=== PATIENT | male | born 1980 | race Hispanic/Latino ===

== ENCOUNTER 2017-05-24 16:06 | Emergency (ER) | payer SELFPAY ==
[~2017-05-24 16:06] MED LIST: ALBU0.63 IH; ASPI-1005 PO; ATOR20TA PO; AZIT250T9 PO; BUDE180A2 IH; PRED20TA3 PO
[2017-05-24 17:15] LABS: APPEARANCE,URINE Clear (CLEAR); BASOPHILS % (AUTO) 0.8 % (0.0-5.0); BILIRUBIN,URINE Negative (NEGATIVE); COLOR,URINE Yellow (YELLOW); GLUCOSE, URINE (UA) Negative (NEGATIVE); HEMATOCRIT 45.2 % (42-54); KETONES,URINE Negative (NEGATIVE); LEUKOCYTE ESTERASE ,URINE Negative (NEGATIVE); LYMPHOCYTES % (AUTO) 30.3 % (21.0-51.0); MEAN CORPUSCULAR HEMOGLOBIN 28.9 pg (27.0-33.0); MEAN CORPUSCULAR HGB CONC 33.6 g/dL (32.0-36.0); MONOCYTES % (AUTO) 10.2 % (3.0-13.0); NEUTROPHILS % (AUTO) 51.7 % (40.0-77.0); NITRATE,URINE Negative (NEGATIVE); OCCULT BLOOD,URINE Negative (NEGATIVE); PH,URINE 6.5 (5.0-8.0); PLATELET COUNT (AUTO) 293 K/uL (130-400); PROTEIN,URINE Negative (NEGATIVE); RED BLOOD CELL COUNT(AUTO) 5.26 MIL/uL (4.50-6.20); RED CELL DISTRIBUTION WIDTH 14.2 % (11.0-15.5); UROBILINOGEN,URINE 0.2 mg/dL (0.2-1.0)
[2017-05-24 17:29] LABS: CREATININE 1.4 mg/dL (0.5-1.5); POTASSIUM 4.3 mmol/L (3.5-5.1); RAPID GROUP A STREP NEGATIVE (NEGATIVE)
[2017-05-24 17:34] LABS: ALBUMIN 4.2 g/dL (3.5-5.0); BILIRUBIN,DIRECT 0.1 mg/dL (0.0-0.3); BILIRUBIN,TOTAL 0.7 mg/dL (0.2-1.0); TOTAL PROTEIN, SERUM 7.9 g/dL (6.0-8.3)
== END 2017-05-24 17:49 | disposition home or self-care (01) ==
LOC: EDH 16:06
DX: J00 Acute nasopharyngitis [common cold] (principal); J45.909 Unspecified asthma, uncomplicated; E11.9 Type 2 diabetes mellitus without complications; E78.5 Hyperlipidemia, unspecified; I10 Essential (primary) hypertension; Z88.6 Allergy status to analgesic agent; Z91.013 Allergy to seafood
CPT/HCPCS: 36415; 80048; 80076; 81003; 85025; 87804; 87880

== ENCOUNTER 2017-07-26 15:30 | Emergency (ER) | payer SELFPAY ==
[2017-07-26] MEDS ORDERED: FAMOTIDINE 20MG TAB 20 MG TAB ONE (15:45)
[2017-07-26] MEDS ORDERED: HYOSCYAMINE SULFATE 0.125 MG TAB.SUBL SL ONE (15:45)
[2017-07-26] MEDS ORDERED: ONDANSETRON 4 MG TABLET ONE (15:45)
[2017-07-26 15:59] LABS: BASOPHILS % (AUTO) 0.4 % (0.0-5.0); EOSINOPHILS % (AUTO) 6.4 % (0.0-8.0); HEMATOCRIT 48.3 % (42-54); LYMPHOCYTES % (AUTO) 22.3 % (21.0-51.0); MEAN CORPUSCULAR HEMOGLOBIN 29.1 pg (27.0-33.0); MEAN CORPUSCULAR HGB CONC 33.7 g/dL (32.0-36.0); MEAN CORPUSCULAR VOLUME 86.4 fL (79-99); MONOCYTES % (AUTO) 8.6 % (3.0-13.0); NEUTROPHILS % (AUTO) 62.3 % (40.0-77.0); PLATELET COUNT (AUTO) 339 K/uL (130-400); RED BLOOD CELL COUNT(AUTO) 5.59 MIL/uL (4.50-6.20); RED CELL DISTRIBUTION WIDTH 13.7 % (11.0-15.5)
[2017-07-26 16:19] LABS: CREATININE 1.7 mg/dL (0.5-1.5); POTASSIUM 4.4 mmol/L (3.5-5.1)
[2017-07-26 16:23] LABS: ALBUMIN 4.3 g/dL (3.5-5.0); BILIRUBIN,DIRECT 0.2 mg/dL (0.0-0.3); BILIRUBIN,TOTAL 1.2 mg/dL (0.2-1.0); TOTAL PROTEIN, SERUM 8.4 g/dL (6.0-8.3)
[2017-07-26] MEDS ORDERED: SODIUM CHLORIDE 0.9% 1000ML 1,000 ML IV ONE (17:36)
[2017-07-26 18:03] LABS: APPEARANCE,URINE CLEAR (CLEAR); BILIRUBIN,URINE NEGATIVE (NEGATIVE); COLOR,URINE YELLOW (YELLOW); GLUCOSE, URINE (UA) NEGATIVE (NEGATIVE); KETONES,URINE NEGATIVE (NEGATIVE); LEUKOCYTE ESTERASE ,URINE NEGATIVE (NEGATIVE); NITRATE,URINE NEGATIVE (NEGATIVE); OCCULT BLOOD,URINE NEGATIVE (NEGATIVE); PROTEIN,URINE NEGATIVE (NEGATIVE); UROBILINOGEN,URINE 0.2 mg/dL (0.2-1.0)
== END 2017-07-26 19:38 | disposition home or self-care (01) ==
LOC: EDH 15:30
DX: R10.13 Epigastric pain (principal); R94.5 Abnormal results of liver function studies; R74.8 Abnormal levels of other serum enzymes; K59.00 Constipation, unspecified; J45.909 Unspecified asthma, uncomplicated; E11.9 Type 2 diabetes mellitus without complications; E78.5 Hyperlipidemia, unspecified; I10 Essential (primary) hypertension; B19.20 Unspecified viral hepatitis C without hepatic coma; Z88.6 Allergy status to analgesic agent; Z91.013 Allergy to seafood
CPT/HCPCS: 36415; 74021; 80048; 80076; 81003; 83690; 84484; 85025; 86677; 93005; 96360; 96361; 99285; J7030; Q0162

== ENCOUNTER 2017-08-13 23:42 | Inpatient (IN) | payer SELFPAY ==
[~2017-08-13] VITALS: Ht 165.1 cm; Wt 71.2 kg
[2017-08-13] MEDS ORDERED: SODIUM CHLORIDE 0.9% 1000ML 1,000 ML IV ONE (23:55)
[2017-08-13] MEDS ORDERED: ONDANSETRON ODT 4 MG TAB ONE (23:55)
[2017-08-14 00:28] LABS: BASOPHILS % (AUTO) 0.1 % (0.0-5.0); EOSINOPHILS % (AUTO) 2.1 % (0.0-8.0); HEMATOCRIT 49.5 % (42-54); LYMPHOCYTES % (AUTO) 6.3 % (21.0-51.0); MEAN CORPUSCULAR HEMOGLOBIN 29.1 pg (27.0-33.0); MEAN CORPUSCULAR HGB CONC 34.2 g/dL (32.0-36.0); MEAN CORPUSCULAR VOLUME 85.2 fL (79-99); NEUTROPHILS % (AUTO) 84.5 % (40.0-77.0); PLATELET COUNT (AUTO) 326 K/uL (130-400); RED BLOOD CELL COUNT(AUTO) 5.81 MIL/uL (4.50-6.20); RED CELL DISTRIBUTION WIDTH 13.5 % (11.0-15.5); WHITE BLOOD COUNT (AUTO) 18.9 K/uL (4.8-10.8)
[2017-08-14 00:35] LABS: CREATININE 1.5 mg/dL (0.5-1.5); POTASSIUM 4.5 mmol/L (3.5-5.1)
[2017-08-14 00:40] LABS: ALBUMIN 4.6 g/dL (3.5-5.0); BILIRUBIN,TOTAL 0.8 mg/dL (0.2-1.0); TOTAL PROTEIN, SERUM 8.6 g/dL (6.0-8.3)
[2017-08-14] MEDS ORDERED: ACETAMINOPHEN-CODEINE ELIXIR 5 ML UDCUP ONE (01:23)
[2017-08-14] MEDS ORDERED: MEROPENEM 1 GM VIAL ONE (01:44)
[2017-08-14] MEDS ORDERED: LIDOCAINE HCL 2% JELLY 5 ML ONE (01:45)
[2017-08-14] MEDS ORDERED: KETOROLAC TROMETHAMINE 30MG/ML ONE (02:12)
[2017-08-14] MEDS ORDERED: SODIUM CHLORIDE 0.9% 1000ML 1,000 ML IV SCH (02:40)
[2017-08-14] MEDS ORDERED: ONDANSETRON HCL 4 MG/2 ML VIAL IV PRN (02:45)
[2017-08-14] MEDS ORDERED: KETOROLAC TROMETHAMINE 30MG/ML IV PRN (02:45)
[2017-08-14] MEDS ORDERED: MEROPENEM 1GM IVPB PREMIXED 1 GM IV SCH (02:45)
[2017-08-14] MEDS ORDERED: LORAZEPAM 2 MG/ML 1 ML VIAL IVP PRN (02:45)
[2017-08-14] MEDS ORDERED: LORAZEPAM 2 MG/ML 1 ML VIAL ONE (03:39)
[2017-08-14 04:45] VITALS: BP 125/79
[2017-08-14 04:45] LABS: BASOPHILS % (AUTO) 0.3 % (0.0-5.0); EOSINOPHILS % (AUTO) 1.6 % (0.0-8.0); HEMATOCRIT 44.6 % (42-54); LYMPHOCYTES % (AUTO) 6.7 % (21.0-51.0); MEAN CORPUSCULAR HEMOGLOBIN 29.3 pg (27.0-33.0); MEAN CORPUSCULAR VOLUME 86.2 fL (79-99); NEUTROPHILS % (AUTO) 86.4 % (40.0-77.0); PLATELET COUNT (AUTO) 284 K/uL (130-400); RED BLOOD CELL COUNT(AUTO) 5.18 MIL/uL (4.50-6.20); RED CELL DISTRIBUTION WIDTH 13.6 % (11.0-15.5); WHITE BLOOD COUNT (AUTO) 15.1 K/uL (4.8-10.8)
[2017-08-14 04:57] LABS: CREATININE 1.5 mg/dL (0.5-1.5); POTASSIUM 3.8 mmol/L (3.5-5.1)
[2017-08-14] MEDS ORDERED: ALBUTEROL SULFATE 0.083% 2.5 MG/3 ML INH IH SCH ×2 (06:00→10:25)
[2017-08-14 07:56] VITALS: BP 126/80
[2017-08-14] MEDS ORDERED: FAMOTIDINE/PF 20 MG/2 ML VIAL IV SCH (09:00)
[2017-08-14] MEDS ORDERED: MEROPENEM 1 GM VIAL IVP SCH (10:00)
[2017-08-14 11:11] VITALS: BP 122/59
[2017-08-14] MEDS ORDERED: ONDANSETRON HCL MDV 20ML 2 MG/ML VIAL IVP PRN (15:00)
[2017-08-15] MEDS ORDERED: PANTOPRAZOLE 40 MG/VIAL IVP SCH (09:00)
== END 2017-08-14 14:20 | disposition left against medical advice (07) | DRG 390 ==
LOC: EDH 23:42 → OBSVTOIN 23:43 → 3CH 23:43 → 3BH 08-14 09:51
PROVIDERS: ADMIT Internal Medicine Nephrology; ATTEND Internal Medicine Nephrology
DX: K56.609 Unspecified intestinal obstruction, unspecified as to partial versus complete obstruction (principal); B19.20 Unspecified viral hepatitis C without hepatic coma; D72.829 Elevated white blood cell count, unspecified; E78.5 Hyperlipidemia, unspecified; E86.0 Dehydration; F41.9 Anxiety disorder, unspecified; J45.909 Unspecified asthma, uncomplicated; Z91.19 Patient's noncompliance with other medical treatment and regimen; Z88.8 Allergy status to other drugs, medicaments and biological substances; Z91.013 Allergy to seafood; Z83.3 Family history of diabetes mellitus; Z82.49 Family history of ischemic heart disease and other diseases of the circulatory system
CPT/HCPCS: 36415; 71045; 74018; 74176; 80048; 80053; 85025; 94640; 94664; J1885; J2060; J2185; J7030

== ENCOUNTER 2018-02-22 14:36 | Emergency (ER) | payer SELFPAY ==
[2018-02-22 15:11] LABS: APPEARANCE,URINE Clear (CLEAR); BILIRUBIN,URINE Negative (NEGATIVE); COLOR,URINE Yellow (YELLOW); GLUCOSE, URINE (UA) Negative (NEGATIVE); KETONES,URINE Negative (NEGATIVE); LEUKOCYTE ESTERASE ,URINE Negative (NEGATIVE); NITRATE,URINE Negative (NEGATIVE); OCCULT BLOOD,URINE Negative (NEGATIVE); PH,URINE 6.5 (5.0-8.0); PROTEIN,URINE Negative (NEGATIVE); UROBILINOGEN,URINE 0.2 mg/dL (0.2-1.0)
[2018-02-22] MEDS ORDERED: PHENAZOPYRIDINE HCL 200 MG TABLET ONE (15:47)
== END 2018-02-22 16:11 | disposition home or self-care (01) ==
LOC: EDH 14:36
DX: R30.0 Dysuria (principal); R10.30 Lower abdominal pain, unspecified; J45.909 Unspecified asthma, uncomplicated; E11.9 Type 2 diabetes mellitus without complications; E78.5 Hyperlipidemia, unspecified; I10 Essential (primary) hypertension; Z88.6 Allergy status to analgesic agent; Z91.013 Allergy to seafood
CPT/HCPCS: 81003

== ENCOUNTER 2018-03-08 09:40 | Emergency (ER) | payer SELFPAY ==
[2018-03-08] MEDS ORDERED: IPRATROPIUM/ALBUTEROL SULFATE 3 ML SOLUTION IH ONE ×3 (10:15→11:16)
[2018-03-08] MEDS ORDERED: METHYLPREDNISOLONE SOD SUCC 125MG/2ML VIAL ONE (10:17)
[2018-03-08 10:43] LABS: BASOPHILS % (AUTO) 0.4 % (0.0-5.0); EOSINOPHILS % (AUTO) 9.3 % (0.0-8.0); HEMATOCRIT 45.4 % (42-54); LYMPHOCYTES % (AUTO) 24.3 % (21.0-51.0); MEAN CORPUSCULAR HEMOGLOBIN 29.6 pg (27.0-33.0); MEAN CORPUSCULAR HGB CONC 33.4 g/dL (32.0-36.0); MEAN CORPUSCULAR VOLUME 88.8 fL (79-99); MONOCYTES % (AUTO) 8.7 % (3.0-13.0); NEUTROPHILS % (AUTO) 57.3 % (40.0-77.0); PLATELET COUNT (AUTO) 300 K/uL (130-400); RED BLOOD CELL COUNT(AUTO) 5.11 MIL/uL (4.50-6.20); RED CELL DISTRIBUTION WIDTH 13.7 % (11.0-15.5); WHITE BLOOD COUNT (AUTO) 12.8 K/uL (4.8-10.8)
[2018-03-08 10:49] LABS: CREATININE 1.3 mg/dL (0.5-1.5); MAGNESIUM 2.2 mg/dL (1.80-2.40); POTASSIUM 4.9 mmol/L (3.5-5.1)
[2018-03-08 11:39] LABS: B-TYPE NATRIURETIC PEPTIDE 6 pg/mL (0-100)
== END 2018-03-08 12:24 | disposition home or self-care (01) ==
LOC: EDH 09:40
DX: J45.901 Unspecified asthma with (acute) exacerbation (principal); J06.9 Acute upper respiratory infection, unspecified; E11.9 Type 2 diabetes mellitus without complications; E78.5 Hyperlipidemia, unspecified; I10 Essential (primary) hypertension; B19.20 Unspecified viral hepatitis C without hepatic coma; Z88.6 Allergy status to analgesic agent; Z91.013 Allergy to seafood; Z87.891 Personal history of nicotine dependence
CPT/HCPCS: 36415; 71045; 80048; 83735; 83880; 84484; 85025; 87804 ×2; 93005; 94640 ×3; 96374; 99285; J2930

== ENCOUNTER 2021-09-18 11:11 | Emergency (ER) | payer OTHER ==
[~2021-09-18] VITALS: Ht 152.4 cm; Wt 64.0 kg
[2021-09-18 11:52] LABS: BASOPHILS % (AUTO) 0.6 % (0.0-5.0); EOSINOPHILS % (AUTO) 5.5 % (0.0-8.0); HEMATOCRIT 46.8 % (42-54); LYMPHOCYTES % (AUTO) 26.4 % (21.0-51.0); MEAN CORPUSCULAR HEMOGLOBIN 29.4 pg (27.0-33.0); MEAN CORPUSCULAR HGB CONC 32.7 g/dL (32.0-36.0); MEAN CORPUSCULAR VOLUME 89.8 fL (79-99); NEUTROPHILS % (AUTO) 60.2 % (40.0-77.0); PLATELET COUNT (AUTO) 287 K/uL (130-400); RED BLOOD CELL COUNT(AUTO) 5.21 MIL/uL (4.50-6.20); RED CELL DISTRIBUTION WIDTH 12.9 % (11.0-15.5); WHITE BLOOD COUNT (AUTO) 9.4 K/uL (4.8-10.8)
[2021-09-18 11:53] LABS: APPEARANCE,URINE Clear (CLEAR); BILIRUBIN,URINE Negative (NEGATIVE); COLOR,URINE Yellow (YELLOW); GLUCOSE, URINE (UA) Negative (NEGATIVE); KETONES,URINE Negative (NEGATIVE); LEUKOCYTE ESTERASE ,URINE Negative (NEGATIVE); NITRATE,URINE Negative (NEGATIVE); OCCULT BLOOD,URINE Negative (NEGATIVE); PROTEIN,URINE Negative (NEGATIVE); UROBILINOGEN,URINE 0.2 mg/dL (0.2-1.0)
[2021-09-18 12:09] LABS: CREATININE 1.3 mg/dL (0.5-1.5); POTASSIUM 4.1 mmol/L (3.5-5.1)
[2021-09-18 12:14] LABS: ALBUMIN 4.2 g/dL (3.5-5.0); BILIRUBIN,TOTAL 1.3 mg/dL (0.2-1.0); TOTAL PROTEIN, SERUM 8.2 g/dL (6.0-8.3)
[2021-09-18] MEDS ORDERED: MECLIZINE HCL 25 MG TABLET PO ONE (12:30)
[2021-09-18] MEDS ORDERED: 0.9%NACL 1000ML 1,000 ML IV ONE (12:30)
[2021-09-18 14:17] VITALS: BP 121/64
[2021-09-18] MEDS ORDERED: ONDA4TAB10 PO (14:31)
[2021-09-18] MEDS ORDERED: L.AC1CAP6 PO (14:31)
== END 2021-09-18 14:41 | disposition home or self-care (01) ==
LOC: EDH 11:11
DX: E86.0 Dehydration (principal); R42 Dizziness and giddiness; R19.7 Diarrhea, unspecified; J45.909 Unspecified asthma, uncomplicated; F41.9 Anxiety disorder, unspecified; Z88.5 Allergy status to narcotic agent; Z79.51 Long term (current) use of inhaled steroids; Z79.52 Long term (current) use of systemic steroids; Z79.82 Long term (current) use of aspirin; Z79.899 Other long term (current) drug therapy; Z86.19 Personal history of other infectious and parasitic diseases; Z87.19 Personal history of other diseases of the digestive system
CPT/HCPCS: 36415; 80053; 81003; 85025; 93005; 96360; 99284; J7030

== ENCOUNTER 2022-05-13 06:37 | Emergency (ER) | payer OTHER ==
[~2022-05-13] VITALS: Ht 165.1 cm; Wt 69.4 kg
[~2022-05-13 06:37] MED LIST changes: +L.AC1CAP6 PO; +ONDA4TAB10 PO
[2022-05-13] MEDS ORDERED: IPRATROPIUM/ALBUTEROL SULFATE 3 ML SOLUTION IH STA (07:25)
[2022-05-13] MEDS ORDERED: SOLU-MEDROL 125MG VIAL IM STA (07:25)
[2022-05-13 09:32] VITALS: BP 127/72
[2022-05-13] MEDS ORDERED: AMOX500C2 PO (10:19)
[2022-05-13] MEDS ORDERED: ALBU18HF7 IH (10:21)
== END 2022-05-13 10:23 | disposition home or self-care (01) ==
LOC: EDH 06:37
DX: J20.8 Acute bronchitis due to other specified organisms (principal); J32.9 Chronic sinusitis, unspecified; Z20.822 Contact with and (suspected) exposure to COVID-19; E78.00 Pure hypercholesterolemia, unspecified; E03.9 Hypothyroidism, unspecified; Z88.5 Allergy status to narcotic agent; Z91.013 Allergy to seafood; Z79.899 Other long term (current) drug therapy; Z79.82 Long term (current) use of aspirin
CPT/HCPCS: 99284; 71045; 87635; 87804 ×2; 96372; 94640; C9803; J2930

== ENCOUNTER 2022-08-22 10:27 | Emergency (ER) | payer OTHER ==
[~2022-08-22] VITALS: Ht 165.1 cm; Wt 61.2 kg
[~2022-08-22 10:27] MED LIST changes: +ALBU18HF7 IH; +AMOX500C2 PO
[2022-08-22] MEDS ORDERED: 0.9%NACL 1000ML 1,000 ML IV ONE (11:30)
[2022-08-22] MEDS ORDERED: KETOROLAC 15MG/ML VIAL (15MG/ML) IV ONE (11:30)
[2022-08-22] MEDS ORDERED: ONDANSETRON 4MG INJ IVP ONE (11:30)
[2022-08-22] MEDS ORDERED: DEXAMETHASONE SOD PHOSPHATE 4 MG/ML 1ML VIAL IVP ONE (12:30)
[2022-08-22] MEDS ORDERED: IPRATROPIUM/ALBUTEROL SULFATE 3 ML SOLUTION IH ONE (12:30)
[2022-08-22] MEDS ORDERED: CEFTRIAXONE 1G VIAL IVP ONE (12:30)
[2022-08-22 12:50] LABS: BASOPHILS % (AUTO) 0.3 % (0.0-5.0); HEMATOCRIT 46.2 % (42-54); LYMPHOCYTES % (AUTO) 18.9 % (21.0-51.0); MEAN CORPUSCULAR HEMOGLOBIN 28.7 pg (27.0-33.0); MEAN CORPUSCULAR HGB CONC 32.7 g/dL (32.0-36.0); MEAN CORPUSCULAR VOLUME 87.8 fL (79-99); MONOCYTES % (AUTO) 13.6 % (3.0-13.0); NEUTROPHILS % (AUTO) 66.8 % (40.0-77.0); PLATELET COUNT (AUTO) 260 K/uL (130-400); RED BLOOD CELL COUNT(AUTO) 5.26 MIL/uL (4.50-6.20); RED CELL DISTRIBUTION WIDTH 13.2 % (11.0-15.5); WHITE BLOOD COUNT (AUTO) 7.5 K/uL (4.8-10.8)
[2022-08-22 12:59] LABS: CREATININE 1.5 mg/dL (0.5-1.5); POTASSIUM 4.1 mmol/L (3.5-5.1)
[2022-08-22 13:04] LABS: ALBUMIN 3.9 g/dL (3.5-5.0); TOTAL PROTEIN, SERUM 8.4 g/dL (6.0-8.3)
[2022-08-22] MEDS ORDERED: DOXY-252 PO (14:12)
[2022-08-22] MEDS ORDERED: ALBU2SYR3 PO (14:17)
[2022-08-22] MEDS ORDERED: PRED20TA3 PO (14:17)
[2022-08-22 14:22] VITALS: BP 105/62
== END 2022-08-22 14:34 | disposition home or self-care (01) ==
LOC: EDH 10:27
DX: J18.9 Pneumonia, unspecified organism (principal); E03.9 Hypothyroidism, unspecified; E78.00 Pure hypercholesterolemia, unspecified; J45.909 Unspecified asthma, uncomplicated; Z20.822 Contact with and (suspected) exposure to COVID-19; Z79.899 Other long term (current) drug therapy; Z79.82 Long term (current) use of aspirin; Z98.890 Other specified postprocedural states; Z88.5 Allergy status to narcotic agent; Z91.013 Allergy to seafood
CPT/HCPCS: 99284; 96374; 96375; 71045; 87635; 96361; 80053; 85025; 87880; 87804 ×2; 36415; 94640; J1100; C9803; J7030; J0696; J2405; J1885

== ENCOUNTER 2023-05-30 15:26 | Emergency (ER) | payer BC, OTHER ==
[~2023-05-30] VITALS: Ht 165.1 cm; Wt 63.5 kg
[~2023-05-30 15:26] MED LIST changes: +ALBU2SYR3 PO; +DOXY-252 PO
[2023-05-30 15:50] LABS: BASOPHILS # (AUTO) 0.05 K/uL (0.00-0.20); BASOPHILS % (AUTO) 0.5 % (0.0-5.0); EOSINOPHILS # (AUTO) 0.81 K/uL (0.00-0.70); EOSINOPHILS % (AUTO) 7.8 % (0.0-8.0); HEMATOCRIT 45.8 % (42-54); IMMATURE GRANULOCYTE ABSOLUTE 0.02 K/uL (0-1); LYMPHOCYTES # (AUTO) 3.6 K/uL (1.0-4.8); LYMPHOCYTES % (AUTO) 34.8 % (21.0-51.0); MEAN CORPUSCULAR HEMOGLOBIN 29.8 pg (27.0-33.0); MEAN CORPUSCULAR HGB CONC 33.2 g/dL (32.0-36.0); MEAN CORPUSCULAR VOLUME 89.8 fL (79-99); MONOCYTES # (AUTO) 0.8 K/uL (0.1-1.0); MONOCYTES % (AUTO) 7.6 % (3.0-13.0); NEUTROPHILS # (AUTO) 5.1 K/uL (1.8-7.7); NEUTROPHILS % (AUTO) 49.1 % (40.0-77.0); PLATELET COUNT (AUTO) 263 K/uL (130-400); RED CELL DISTRIBUTION WIDTH 13.2 % (11.0-15.5); WHITE BLOOD COUNT (AUTO) 10.3 K/uL (4.8-10.8)
[2023-05-30 16:05] LABS: CREATININE 1.3 mg/dL (0.5-1.5); POTASSIUM 4.3 mmol/L (3.5-5.1)
[2023-05-30 16:14] LABS: ALBUMIN 4.1 g/dL (3.5-5.0); BILIRUBIN,TOTAL 1.2 mg/dL (0.2-1.0); TOTAL PROTEIN, SERUM 7.8 g/dL (6.0-8.3)
[2023-05-30] MEDS ORDERED: BENZ-39 PO (19:06)
[2023-05-30] MEDS ORDERED: IBUP-2070 PO (19:06)
[2023-05-30] MEDS ORDERED: METH4TAB3 PO (19:06)
[2023-05-30] MEDS ORDERED: AZEL23SP NS (19:06)
[2023-05-30] MEDS ORDERED: PANT40TA PO (19:06)
[2023-05-30] MEDS ORDERED: ADV250 IH (19:06)
[2023-05-30] MEDS ORDERED: ALBU6.7H14 IH (19:35)
[2023-05-30 20:03] VITALS: BP 146/77; PULSE 82; RESP 17; O2SAT 98
== END 2023-05-30 20:04 | disposition home or self-care (01) ==
LOC: EDH 15:26
DX: J45.909 Unspecified asthma, uncomplicated (principal); D72.10 Eosinophilia, unspecified; E78.00 Pure hypercholesterolemia, unspecified; E03.9 Hypothyroidism, unspecified; Z79.899 Other long term (current) drug therapy; Z79.82 Long term (current) use of aspirin; Z98.890 Other specified postprocedural states; Z87.19 Personal history of other diseases of the digestive system; Z95.5 Presence of coronary angioplasty implant and graft; Z88.5 Allergy status to narcotic agent; Z88.8 Allergy status to other drugs, medicaments and biological substances
CPT/HCPCS: 36415; 71045; 80053; 84484; 85025; 93005

== ENCOUNTER 2024-06-09 18:19 | Emergency (ER) | payer SELFPAY ==
[~2024-06-09] VITALS: Ht 165.1 cm; Wt 61.2 kg
[~2024-06-09 18:19] MED LIST changes: +ADV250 IH; +ALBU2SYR27 PO; -ALBU2SYR3 PO; +ALBU6.7H14 IH; +AZEL23SP NS; +BENZ-39 PO; +IBUP-2070 PO; +METH4TAB3 PO; +ONDA-243 PO; -ONDA4TAB10 PO; +PANT40TA PO
[2024-06-09 18:36] VITALS: TEMP 98.4
--- NOTE | 2024-06-09 18:36 | EKG ---
[facility] Test Date: 2024-06-09 Test Time: 18:34:16 Pat Name: PARAG SANCHES Department: ED Room: Gender: M Obstetrics Technician: [facility] : 1980 Requested By: TAMERA WEEMS Order Number: [id number] Reading MD: Stefan Hwang Measurements Intervals [place] Rate: 79 P: 85 AL: 84 QRS: -38 QRSD: 97 T: -76 QT: 371 QTc: 426 Interpretive Statements Sinus rhythm Left axis deviation Abnrm R prog, consider ASMI or lead placement Nonspecific repol abnormality, inferior leads Short AL interval Compared to ECG 05/30/2023 15:30:27 Left-axis deviation now present Myocardial infarct finding now present Early repolarization now present Short AL Left ventricular hypertrophy no longer present Q waves no longer present Electronically Signed On 06-10-2024 10:21:49 [employer]IPE FOREM[employer] by Stefan Hwang Please click the below link to view image of tracing.
[2024-06-09 18:55] LABS: MEAN CORPUSCULAR HEMOGLOBIN 29.6 pg (27.0-33.0); MEAN CORPUSCULAR HGB CONC 33.3 g/dL (32.0-36.0); MEAN CORPUSCULAR VOLUME 88.9 fL (79-99); RED BLOOD CELL COUNT(AUTO) 5.51 MIL/uL (4.50-6.20); RED CELL DISTRIBUTION WIDTH 12.6 % (11.0-15.5); WHITE BLOOD COUNT (AUTO) 11.8 K/uL (4.8-10.8)
[2024-06-09] MEDS: Solu-medROL 125MG VIAL IVP ONE (18:59)
[2024-06-09 19:03] LABS: CREATININE 1.4 mg/dL (0.5-1.3); POTASSIUM 3.7 mmol/L (3.5-5.1)
[2024-06-09 19:08] LABS: BILIRUBIN,TOTAL 0.8 mg/dL (0.2-1.0); TOTAL PROTEIN, SERUM 7.8 g/dL (6.0-8.3)
[2024-06-09 19:11] VITALS: PULSE 77; RESP 20
[2024-06-09] MEDS: IpraTROPium/alBUTERol SULFATE 3 ML SOLUTION IH ONE ×2 (19:11→19:28)
[2024-06-09 19:28] VITALS: PULSE 85; RESP 20
[2024-06-09 19:40] LABS: ABG BASE EXCESS -2.8 mmol/L (-2.0-3.0); ABG HCO3 18.1 mmol/L (21.0-28.0); ABG OXYGEN SATURATION 98.7 % (94.0-98.0); ABG PCO2 23 mmHg (35-48); ABG PH 7.509 (7.350-7.450); PO2, ARTERIAL BG 120.6 mmHg (83.0-108.0); VENT MODE, BG ROOMAIR (ROOM AIR)
[2024-06-09] MEDS: 0.9%NACL 1000ML 1,000 ML IV ONE (19:54)
[2024-06-09 20:45] VITALS: BP 130/85; PULSE 79; RESP 17; O2SAT 98
[2024-06-09] MEDS ORDERED: AZIT250T9 PO (20:59)
[2024-06-09] MEDS ORDERED: METH4TAB3 PO (20:59)
[2024-06-09] MEDS ORDERED: ALBUHFA IH (20:59)
--- NOTE | 2024-06-09 21:00 | ERN ---
General Chief Complaint: Adult-Asthma Stated Complaint: SOB, WHEEZING Time Seen by MD: 18:25 Time Seen by Midlevel: 18:25 Source: patient History of Present Illness Initial Comments Patient is a 43-year-old male with a past medical history of asthma presenting to the emergency department with shortness of breath and wheezing. Patient states that approximately 1 hour prior to arrival his symptoms started. Patient did three nebulizer treatments at home with little to no relief. Denies any other symptoms at this time. Allergies: Coded Allergies: codeine (Unverified Allergy, Intermediate, HIVES, 11/03/16) shellfish derived (Unverified Allergy, Mild, 06/07/14) No Allergy Information Available (Verified Allergy, Unknown, 06/07/14) Home Meds Active Scripts Albuterol Sulfate (Ventolin Hfa/Proventil Hfa/Proair Hfa) 90 Mcg Puff, 2 PUFF IH Q4H PRN for SHORTNESS OF BREATH/WHEEZING for 30 Days, #1 INH 0 Refills Prov:RONALD BURNETT 06/09/24 Methylprednisolone (Medrol) 4 Mg Tab.ds.pk, 1 TAB PO AD for 6 Days, #21 TAB 0 Refills 6 on day 1 then reduce by one tablet daily until gone Prov:RONALD BURNETT 06/09/24 Azithromycin (Azithromycin) 250 Mg Tablet, 1 TAB PO AD for 5 Days, #6 TAB 0 Refills 2 the first day followed by 1 for days 2-5 Prov:RONALD BURNETT 06/09/24 Albuterol Sulfate (Proventil Hfa) 90 Mcg Hfa.aer.ad, 6.7 GM IH Q4HPRN PRN for WHEEZING, #1 INHALER 1 Refill as needed for asthma or wheezing exacerbation Prov:BART BURCIAGA 05/30/23 Ibuprofen (Ibuprofen) 600 Mg Tablet, 600 MG PO TID PRN for PAIN for 3 Days, #12 TAB Prov:BART BURCIAGA 05/30/23 Pantoprazole Sodium (Protonix) 40 Mg Tablet.dr, 40 MG PO DAILY for 14 Days, #14 TAB Prov:BART BURCIAGA 05/30/23 Methylprednisolone (Medrol) 4 Mg Tab.ds.pk, 4 MG PO DAILY, #1 PACK as directed per dose pack instructions Prov:BART BURCIAGA 05/30/23 Benzonatate (Tessalon Perles) 100 Mg Cap, 100 MG PO TID for cough, #15 CAP 0 Refills Prov:BART BURCIAGA. 05/30/23 Azelastine/Fluticasone (Dymista Nasal [place]) 137 Mcg-50 Mcg/[place].pump, 23 GM NS BID for 30 Days, #1 BOTTLE Prov:BART BURCIAGA Heladio 05/30/23 Fluticasone/Salmeterol (ADVAIR 250-50 DISKUS) 14 Inh/Disk Inh, 1 INH IH BID for 30 Days, #1 INHALER Prov:BART BURCIAGA Preet. 05/30/23 Albuterol Sulfate (Albuterol Sulfate) 2 Mg/5 Ml Syrup, 2 MG PO TID for 5 Days, #75 ML Prov:LARA MARIE REPAIR TECH 08/22/22 Prednisone (Prednisone) 20 Mg Tablet, 2 TAB PO AD for 5 Days, #10 0 Refills TAKE 1 TAB BY MOUTH THREE TIMES PER DAY X3 DAYS, THEN TAKE 1 TAB BY MOUTH TWICE A DAY X2 DAYS, THEN TAKE 1 TAB BY MOUTH ONCE A DAY X1 DAY. Prov:LARA MARIE NP 08/22/22 Doxycycline Hyclate (Doxycycline Hyclate) 100 Mg Tablet.dr, 100 MG PO BID for 7 Days, #14 TAB Prov:LARA MARIE REPAIR TECH 08/22/22 Albuterol Sulfate (Ventolin Hfa) 18 Gm Hfa.aer.ad, 18 GM IH BID for 7 Days, #30 INHALER Prov:ODALYS DUVALL MD 05/13/22 Amoxicillin (Amoxicillin) 500 Mg Capsule, 500 MG PO TID for 7 Days, #21 CAP Prov:ODALYS DUVALL MD 05/13/22 Ondansetron (Ondansetron Odt) 4 Mg Tab.rapdis, 4 MG PO TID, #15 TAB Prov:FREEMAN MIGUEL 09/18/21 L.acidoph & Paracasei,B.lactis (Probiotic) 1 Each Capsule, 1 EACH PO DAILY, #30 CAP Prov:FREEMAN MIGUEL 09/18/21 Budesonide (Pulmicort Flexhaler) 180 Mcg Aer.pow.ba, 180 MCG IH BID, #1 UNIT Prov:MICKY DALTON MD 11/04/16 Azithromycin (Azithromycin) 250 Mg Tablet, 250 MG PO DAILY, #5 TAB Prov:MICKY DALTON MD 11/04/16 Reported Medications Albuterol Sulfate (Albuterol Sulfate) 0.63 Mg/3 Ml Vial.neb, 0.63 MG IH Q4HPRN PRN for SHORTNESS OF BREATH, INH 11/03/16 Aspirin (ASPIRIN 81MG CHEW TAB) 81 Mg Tab.chew, 81 MG PO DAILY, TAB.CHEW 11/03/16 Prednisone (Prednisone) 20 Mg Tablet, 20 MG PO TID, TAB 11/03/16 Atorvastatin Calcium (Lipitor) 20 Mg Tablet, 20 MG PO HS, TAB !!Remember to check dose!! 06/08/14 Past Medical History Past Medical History: Asthma, High Cholesterol, Heart Disease, Hypothyroid Medical History Other: HEP C, GASTRITIS Past Surgical History: None Surgical History Other: HEART STENT ROS Dictation CONSTITUTIONAL: Negative except for HPI HEAD/FACE: Negative except for HPI EENT: Negative except for HPI RESPIRATORY: Negative except for HPI GASTROINTESTINAL/ABDOMINAL: Negative except for HPI GENITOURINARY: Negative except for HPI MUSCULOSKELETAL: Negative except for HPI INTEGUMENTARY: Negative except for HPI NEUROLOGICAL/PSYCH: Negative except for HPI HEMATOLOGIC/LYMPHATIC: Negative except for HPI All Systems Negative, Except as noted above. 13 point review of systems assessed and all negative except for above. Physical Exam Physical Exam Dictation Vital Signs reviewed General Appearance: Alert, oriented x 3, no acute distress, well developed, nourished. Head and Face: non-traumatic. Eyes: PERRL, pink conjunctivas, eyelid no trauma, anterior chamber with arcus senilis. Ears: Pinnas intact and no signs of trauma or erythema ear canals clear and no d ischarge TM no erythema Nose: No discharge, no bleeding. Oropharynx: Mouth normal, tongue pink, pharynx clear,no erythema, tonsils no exudates, no abscesses noted, mucous membrane moist Neck: Supple, non-tender, no thyromegaly, no masses, no JVD, no bruits Breast:Deferred Chest:No tenderness, no crepitus, no paradoxical movement, no retractions Lungs: Wheezing to bilateral lung galeana, no rhonchi, no stridor, symmetrical Heart: Regular rate, regular rhythm, no murmur, no gallops Vascular: no peripheral edema, Abdomen: Soft, positive bowel sounds, nondistended, no guarding, nontender, no rebound, no masses no hepatomegaly, no splenomegaly, no Zheng's sign, no hernias. Rectal: Deferred Genital: Deferred Neurological: Normal speech, motor function intact, sensory function intact Musculoskeletal: Neck nontender, full range of motion, back nontender, full range of motion, Extremities: nontender, full range of motion Skin: Color pink, dry, no turgor, no rash, no lacerations, no abrasions, no contusions. Lymphatic: Deferred Results Laboratory and Microbiology Lab and Micro Result Laboratory Tests Test 06/09/24 18:35 06/09/24 19:36 White Blood Count 11.8 K/uL (4.8-10.8) H Red Blood Count 5.51 MIL/uL (4.50-6.20) Hemoglobin 16.3 g/dL (14.0-18.0) Hematocrit 49.0 % (42-54) Mean Corpuscular Volume 88.9 fL (79-99) Mean Corpuscular Hemoglobin 29.6 pg (27.0-33.0) Mean Corpuscular Hemoglobin Concent 33.3 g/dL (32.0-36.0) Red Cell Distribution Width 12.6 % (11.0-15.5) Platelet Count 309 K/uL (130-400) Mean Platelet Volume 10.6 fL (7.5-10.5) H Nucleated Red Blood Cells 0.0 % (0.0-0.19) Sodium Level 138 mmol/L (136-145) Potassium Level 3.7 mmol/L (3.5-5.1) Chloride Level 101 mmol/L (101-111) Carbon Dioxide Level 30 mmol/L (21-32) Blood Urea Nitrogen 28 mg/dL (7-18) H Creatinine 1.4 mg/dL (0.5-1.3) H Glomerular Filtration Rate Calc 65 mL/min (>90) Random Glucose 115 mg/dL (70-105) H Total Calcium 8.9 mg/dL (8.5-10.1) Total Bilirubin 0.8 mg/dL (0.2-1.0) Aspartate Amino Transf (AST/SGOT) 38 U/L (10-37) H Alanine Aminotransferase (ALT/SGPT) 49 U/L (12-78) Alkaline Phosphatase 89 U/L (50-136) Total Protein 7.8 g/dL (6.0-8.3) Albumin 4.0 g/dL (3.5-5.0) Blood Gas Specimen Type Arterial Arterial Blood pH 7.509 (7.350-7.450) Arterial Blood Partial Pressure CO2 23 mmHg (35-48) L Arterial Blood Partial Pressure O2 120.6 mmHg (83.0-108.0) H Arterial Blood HCO3 18.1 mmol/L (21.0-28.0) L Arterial Blood Oxygen Saturation 98.7 % (94.0-98.0) H Arterial Blood Base Excess -2.8 mmol/L (-2.0-3.0) L Blood Gas Temperature 37.0 CELSIUS (35.5-37.0) Blood Gas Vent Mode ROOMAIR (ROOM AIR) FiO2 21.0 % Blood Gas Specimen Comment RB BASILIA ZARCO Labs Reviewed?: Yes MDM MDM: Differential diagnosis: Asthma exacerbation, viral illness, pneumonia There are no social concerns with this patient. Prescription drug management Prescriptions will include: Albuterol inhaler, Medrol pack, azithromycin Medical management and examination interpretation discussions were had by me with other qualified healthcare professionals as indicated for the patient's care. ED Course Orders Procedure Category Date Status Time Ipratropium/Albuterol PHA 06/09/24 Complete Neb (Duoneb) 18:30 Cbc Without LAB 06/09/24 Complete Differential 18:24 Comprehensive LAB 06/09/24 Complete Metabolic Panel 18:24 Chest 1vw RAD 06/09/24 Resulted 18:24 12 Lead Ekg Tracing- EKG 06/09/24 Resulted Technical 18:24 Arterial Blood Gas RT 06/09/24 Transmitted 18:24 Ipratropium/Albuterol PHA 06/09/24 Complete Neb (Duoneb) 18:30 Methylprednisolone PHA 06/09/24 Complete Succ 125mg (Solu-Medr 18:30 0.9%Nacl 1000ml (Ns PHA 06/09/24 Complete 1000ml) 19:30 Arterial Blood Gas LAB 06/09/24 Complete 19:36 Current Medications Medications (Trade) Dose Ordered Sig/Randall Route PRN Reason Start Time Stop Time Status Last Admin Dose Admin Albuterol (DUOneb) 1 UDVIAL ONCE ONCE IH 06/09/24 18:30 06/09/24 18:31 DC 06/09/24 19:11 Albuterol (DUOneb) 1 UDVIAL ONCE ONCE IH 06/09/24 18:30 06/09/24 18:31 DC 06/09/24 19:28 Methylprednisolone Sodium Succinate (Solu-medROL 125MG) 125 mg ONCE ONCE IVP 06/09/24 18:30 06/09/24 18:31 DC 06/09/24 18:59 Sodium Chloride 1,000 ml @ 0 mls/hr ONCE ONCE IV 06/09/24 19:30 06/09/24 19:31 DC 06/09/24 19:54 Vital Signs Date Time Temp Pulse Resp B/P (MAP) Pulse Ox O2 Delivery O2 Flow Rate FiO2 06/09/24 20:45 79 17 130/85 98 Room Air* 0 21 06/09/24 19:52 86 124/46 98 Aerosol Mask+ 15 80 06/09/24 19:28 85 20 06/09/24 19:11 77 20 06/09/24 18:36 98.4 85 18 144/79 95 Room Air* 0 21 06/09/24 18:20 98.4 98 24 125/86 98 Room Air DX & DISP Disposition: Discharge Departure Impression: Primary Impression: Asthma exacerbation Condition: Stable Scripts Albuterol Sulfate (Ventolin Hfa/Proventil Hfa/Proair Hfa) 90 Mcg Puff 2 PUFF IH Q4H PRN for SHORTNESS OF BREATH/WHEEZING for 30 Days, #1 INH 0 Refills Prov: RONALD BURNETT 06/09/24 Methylprednisolone (Medrol) 4 Mg Tab.ds.pk 1 TAB PO AD for 6 Days, #21 TAB 0 Refills 6 on day 1 then reduce by one tablet daily until gone Prov: RONALD BURNETT 06/09/24 Azithromycin (Azithromycin) 250 Mg Tablet 1 TAB PO AD for 5 Days, #6 TAB 0 Refills 2 the first day followed by 1 for days 2-5 Prov: RONALD BURNETT 06/09/24 Referrals: SELF,REFERRAL (PCP) I have reviewed the case, and I agree with, Diagnosis and Plan I performed the substantive portion of the visit. I have reviewed and personally made and approve the management plan that is documented in the note by myself or the KELIN. I acknowledge for responsibility for the patient's management plan. RONALD BURNETT Jun 09, 2024 21:00
--- NOTE | 2024-06-10 00:23 | HMCIMG ---
CHEST 1VW HISTORY: Shortness of breath COMPARISON: 05/30/2023 FINDINGS: A frontal projection of the chest was obtained. No acute pulmonary infiltrates is seen. The heart is normal in size. Prominent interstitial markings are seen. Degenerative changes are seen. No evidence of aortic calcification is seen. IMPRESSION: 1. No acute pulmonary infiltrate is seen.
== END 2024-06-09 21:24 | disposition home or self-care (01) ==
LOC: EDH 18:19
DX: J45.901 Unspecified asthma with (acute) exacerbation (principal); E03.9 Hypothyroidism, unspecified; E78.00 Pure hypercholesterolemia, unspecified; Z79.51 Long term (current) use of inhaled steroids; Z79.52 Long term (current) use of systemic steroids; Z79.82 Long term (current) use of aspirin; Z79.899 Other long term (current) drug therapy; Z88.5 Allergy status to narcotic agent; Z95.5 Presence of coronary angioplasty implant and graft
CPT/HCPCS: 99285; 96374; 71045; 96361; 80053; 82803; 85027; 36415; 93005; 36600; 94640; J2919; J7030

== ENCOUNTER 2024-07-31 21:09 | Emergency (ER) | payer SELFPAY ==
[~2024-07-31] VITALS: Ht 165.1 cm; Wt 65.8 kg
[~2024-07-31 21:09] MED LIST changes: +ACID1TAB8 PO; +ALBUHFA IH; +BISM-77 PO
--- NOTE | 2024-07-31 21:49 | HMCIMG ---
CHEST 1VW CLINICAL HISTORY: cough COMPARISON: 06/09/2024 TECHNIQUE: Single view of the chest was obtained. FINDINGS: Lungs are clear. The cardiac size and mediastinum are unremarkable. The bony structures are within normal limits. IMPRESSION: No acute cardiopulmonary process identified.
[2024-07-31] MEDS: acetaMINOPHEN 500 MG TABLET PO ONE (21:50)
[2024-07-31] MEDS: dexaMETHasone SOD PHOSPHATE 4 MG/ML 1ML VIAL IM ONE (21:50)
[2024-07-31] MEDS: guaiFENesin-DM 200/20MG 10ML PO ONE (21:51)
[2024-07-31 22:02] LABS: RAPID GROUP A STREP negative (NEGATIVE)
[2024-07-31 22:12] LABS: COVID19 (SARS ANTIGEN RAPID) PRESUMPTIVE NEGATIVE (NEGATIVE); INFLUENZA TYPE A Negative For Type A (NEGATIVE); INFLUENZA TYPE B Negative For Type B (NEGATIVE)
[2024-07-31] MEDS ORDERED: METH4TAB3 PO (22:45)
[2024-07-31] MEDS ORDERED: ALBUHFA IH (22:45)
--- NOTE | 2024-07-31 22:45 | ERN ---
ED Note History of Present Illness Stated Complaint: FEVER, COUGH Chief Complaint: Flu Symptoms Time Seen by MD: 21:12 Time Seen by Midlevel: 21:12 Dictation: The patient is a 43-year-old male with a history of hyperlipidemia who presents to the emergency department with complaints of sore throat, productive cough, headaches onset four days ago. Patient reports fevers. Allergies: Coded Allergies: codeine (Unverified Allergy, Intermediate, HIVES, 11/03/16) shellfish derived (Unverified Allergy, Mild, 06/07/14) No Allergy Information Available (Verified Allergy, Unknown, 06/07/14) Home Meds Active Scripts Bismuth Subsalicylate (Pepto-Bismol To-Go) 262 Mg Tab.chew, 1 TAB PO QID for diarrhea for 3 Days, #15 TAB 0 Refills Prov:TAMERA ASENCIO MD 06/27/24 Acidophilus/Bulgaricus (Floranex Tablet) 1 Million Cell Tablet, 1 TAB PO TID for 30 Days, #30 TAB 0 Refills Prov:TAMERA ASENCIO MD 06/27/24 Ondansetron (Ondansetron Odt) 4 Mg Tab.rapdis, 1 TAB PO Q6HPRN PRN for nausea/vomiting for 4 Days, #16 TAB 0 Refills Prov:TAMERA ASENCIO MD 06/27/24 Albuterol Sulfate (Ventolin Hfa/Proventil Hfa/Proair Hfa) 90 Mcg Puff, 2 PUFF IH Q4H PRN for SHORTNESS OF BREATH/WHEEZING for 30 Days, #1 INH 0 Refills Prov:RONALD BURNETT 06/09/24 Methylprednisolone (Medrol) 4 Mg Tab.ds.pk, 1 TAB PO AD for 6 Days, #21 TAB 0 Refills 6 on day 1 then reduce by one tablet daily until gone Prov:RONALD BURNETT 06/09/24 Azithromycin (Azithromycin) 250 Mg Tablet, 1 TAB PO AD for 5 Days, #6 TAB 0 Refills 2 the first day followed by 1 for days 2-5 Prov:RONALD BURNETT 06/09/24 Albuterol Sulfate (Proventil Hfa) 90 Mcg Hfa.aer.ad, 6.7 GM IH Q4HPRN PRN for WHEEZING, #1 INHALER 1 Refill as needed for asthma or wheezing exacerbation Prov:BART BURCIAGA 05/30/23 Ibuprofen (Ibuprofen) 600 Mg Tablet, 600 MG PO TID PRN for PAIN for 3 Days, #12 TAB Prov:BART BURCIAGA 05/30/23 Pantoprazole Sodium (Protonix) 40 Mg Tablet.dr, 40 MG PO DAILY for 14 Days, #14 TAB Prov:BART BURCIAGA 05/30/23 Methylprednisolone (Medrol) 4 Mg Tab.ds.pk, 4 MG PO DAILY, #1 PACK as directed per dose pack instructions Prov:BART BURCIAGA 05/30/23 Benzonatate (Tessalon Perles) 100 Mg Cap, 100 MG PO TID for cough, #15 CAP 0 Refills Prov:BART BURCIAGA 05/30/23 Azelastine/Fluticasone (Dymista Nasal [place]) 137 Mcg-50 Mcg/[place].pump, 23 GM NS BID for 30 Days, #1 BOTTLE Prov:BART BURCIAGA 05/30/23 Fluticasone/Salmeterol (ADVAIR 250-50 DISKUS) 14 Inh/Disk Inh, 1 INH IH BID for 30 Days, #1 INHALER Prov:BART BURCIAGA 05/30/23 Albuterol Sulfate (Albuterol Sulfate) 2 Mg/5 Ml Syrup, 2 MG PO TID for 5 Days, #75 ML Prov:LARA MARIE NP 08/22/22 Prednisone (Prednisone) 20 Mg Tablet, 2 TAB PO AD for 5 Days, #10 0 Refills TAKE 1 TAB BY MOUTH THREE TIMES PER DAY X3 DAYS, THEN TAKE 1 TAB BY MOUTH TWICE A DAY X2 DAYS, THEN TAKE 1 TAB BY MOUTH ONCE A DAY X1 DAY. Prov:LARA MARIE NP 08/22/22 Doxycycline Hyclate (Doxycycline Hyclate) 100 Mg Tablet.dr, 100 MG PO BID for 7 Days, #14 TAB Prov:LARA MARIE NP 08/22/22 Albuterol Sulfate (Ventolin Hfa) 18 Gm Hfa.aer.ad, 18 GM IH BID for 7 Days, #30 INHALER Prov:ODALYS DUVALL MD 05/13/22 Amoxicillin (Amoxicillin) 500 Mg Capsule, 500 MG PO TID for 7 Days, #21 CAP Prov:ODALYS DUVALL MD 05/13/22 Ondansetron (Ondansetron Odt) 4 Mg Tab.rapdis, 4 MG PO TID, #15 TAB Prov:FREEMAN MIGUELP 09/18/21 L.acidoph & Paracasei,B.lactis (Probiotic) 1 Each Capsule, 1 EACH PO DAILY, #30 CAP Prov:FREEMAN MIGUEL [facility] 09/18/21 Budesonide (Pulmicort Flexhaler) 180 Mcg Aer.pow.ba, 180 MCG IH BID, #1 UNIT Prov:MICKY DALTON MD 11/04/16 Azithromycin (Azithromycin) 250 Mg Tablet, 250 MG PO DAILY, #5 TAB Prov:MICKY DALTON MD 11/04/16 Reported Medications Albuterol Sulfate (Albuterol Sulfate) 0.63 Mg/3 Ml Vial.neb, 0.63 MG IH Q4HPRN PRN for SHORTNESS OF BREATH, INH 11/03/16 Aspirin (ASPIRIN 81MG CHEW TAB) 81 Mg Tab.chew, 81 MG PO DAILY, TAB.CHEW 11/03/16 Prednisone (Prednisone) 20 Mg Tablet, 20 MG PO TID, TAB 11/03/16 Atorvastatin Calcium (Lipitor) 20 Mg Tablet, 20 MG PO HS, TAB !!Remember to check dose!! 06/08/14 Past Medical History Past Medical History: Asthma, High Cholesterol, Heart Disease, Hypothyroid Additional Past Medical Hx: HEP C, GASTRITIS Surgical History: Other Surgical History Other: HEART STENT RN Note Reviewed/Agreed w/PFSH: Yes Review of System Dictation Constitutional: Negative for ,chills, and weight loss positive for fever Eyes: Negative for injury, pain,redness, and discharge ENT: Negative for injury,pain or swelling positive for sore throat Cardiovascular: Negative for chest pain, palpitations, and edema Respiratory: Negative for shortness of breath, and wheezing, positive for cough Abdomen/GI: Negative for abdominal pain, nausea, vomiting, diarrhea, and constipation Back: Negative for injury and pain : Negative for injury, bleeding and discharge MS/Extremity: Negative for injury and deformity Skin: Negative for rash, and discoloration Neuro: Negative for headache, weakness, numbness, tingling, and seizure Psych: Negative for suicide ideation, homicidal ideation, and hallucinations Initial Vital Sign VS Vital Signs Date Time Temp Pulse Resp B/P (MAP) Pulse Ox O2 Delivery O2 Flow Rate FiO2 07/31/24 21:10 99.7 102 20 135/66 99 Room Air Physical Exam Dictation Vital Signs reviewed General Appearance: Alert, oriented x 3, no acute distress, well developed, nourished. Head and Face: non-traumatic. Eyes: PERRL, pink conjunctivas, eyelid no trauma, anterior chamber with arcus senilis. Ears: Pinnas intact and no signs of trauma or bilateral erythema ear canals clear and no discharge TM no erythema Nose: No discharge, no bleeding. Oropharynx: Mouth normal, tongue pink. pharynx clear,no erythema, tonsils no exudates, no abscesses noted, mucous memb myra moist Neck: Supple, non-tender, no thyromegaly, no masses, no JVD, no bruits Breast:Deferred Chest:No tenderness, no crepitus, no paradoxical movement, no retractions Lungs:Clear, well-ventilated, symmetric, no rales, mild wheezing, no rhonchi, no stridor, good breath sounds bilaterally Heart: Regular rate, regular rhythm, no murmur, no gallops Vascular: no peripheral edema, Abdomen: Soft, positive bowel sounds, nondistended, no guarding, nontender, no rebound, no masses no hepatomegaly, no splenomegaly, no Zheng's sign, no hernias. Rectal: Deferred Genital: Deferred Neurological: Normal speech, motor function intact, sensory function intact Musculoskeletal: Neck nontender, full range of motion, back nontender, full range of motion, Extremities: nontender, full range of motion Skin: Color pink, dry, no turgor, no rash, no lacerations, no abrasions, no contusions. Lymphatic: Deferred Results (Laboratory/Radiology) Laboratory/Radiology Laboratory Tests Test 07/31/24 21:41 Influenza Type A Antigen Negative For Type A Influenza Type B Antigen Negative For Type B SARS-CoV-2 Antigen (Rapid) PRESUMPTIVE NEGATIVE Group A Streptococcus Rapid negative (NEGATIVE) REASON: cough ORDERING PHYSICIAN: ANEL GREEN BELT LINE FEEDER PROCEDURE: CXR1VW - CHEST 1VW CHEST 1VW CLINICAL HISTORY: cough COMPARISON: 06/09/2024 TECHNIQUE: Single view of the chest was obtained. FINDINGS: Lungs are clear. The cardiac size and mediastinum are unremarkable. The bony structures are within normal limits. IMPRESSION: No acute cardiopulmonary process identified. Labs Reviewed?: Yes ED Course ED Course Orders Procedure Category Date Status Time Chest 1vw RAD 07/31/24 Resulted 21:21 Influenza Type A & B, LAB 07/31/24 Complete Rapid 21:21 Covid19 (Sars Antigen LAB 07/31/24 Complete Rapid) 21:21 Rapid (Group A Strep) LAB 07/31/24 Complete 21:21 Ipratropium/Albuterol PHA 07/31/24 Complete Neb (Duoneb) 21:30 Dexamethasone 4mg/Ml PHA 07/31/24 Complete 1ml Vial (Dexametha 21:30 Acetaminophen 500mg PHA 07/31/24 Complete Tab (Tylenol 500mg T 21:30 Guaifenesin-Dm PHA 07/31/24 Complete 200/20mg 10ml 21:30 Current Medications Medications (Trade) Dose Ordered Sig/Randall Route PRN Reason Start Time Stop Time Status Last Admin Dose Admin Acetaminophen (TYLenol 500MG TAB) 1,000 mg ONCE ONCE PO 07/31/24 21:30 07/31/24 21:31 DC 07/31/24 21:50 Albuterol (DUOneb) 1 UDVIAL ONCE ONCE IH 07/31/24 21:30 07/31/24 21:31 DC Dexamethasone Sodium Phosphate (dexaMETHasone 4MG/ML 1ML VIAL) 6 mg ONCE ONCE IM 07/31/24 21:30 07/31/24 21:31 DC 07/31/24 21:50 Guaifenesin/ Dextromethorphan (RobiTUSSin DM 200/20MG 10ML) 10 ml ONCE ONCE PO 07/31/24 21:30 07/31/24 21:31 DC 07/31/24 21:51 Vital Signs Date Time Temp Pulse Resp B/P (MAP) Pulse Ox O2 Delivery O2 Flow Rate FiO2 07/31/24 21:10 99.7 102 20 135/66 99 Room Air Medical Decision Making MDM The patient is a 43-year-old male with a history of hyperlipidemia who presents to the emergency department with complaints of sore throat, productive cough, headaches onset four days ago. Patient reports fevers. Serology negative. Chest x-ray showed no acute pathology. Patient in no acute distress, nontoxic appearance. Mild wheezing. Patient received steroids and respiratory treatment in ER. Vital signs stable. Patient will be discharged to follow up with PCP. Differential diagnosis: COVID 19 infection, strep throat, upper respiratory infection, pneumonia Need for hospitalization: Patient does not meet criteria for hospitalization. There are no social concerns with this patient. DX & DISP Disposition: Discharge Departure Impression: Primary Impression: Acute viral bronchitis Additional Impression: URI (upper respiratory infection) Condition: Stable Scripts Albuterol Sulfate (Ventolin Hfa/Proventil Hfa/Proair Hfa) 90 Mcg Puff 1-2 PUFF IH Q4H PRN for SHORTNESS OF BREATH for 5 Days, #1 INH 0 Refills PHARMACY TO DISPENSE 1 INHALER FOR USE Prov: ANEL GREEN BELT LINE FEEDER 07/31/24 Methylprednisolone (Medrol) 4 Mg Tab.ds.pk 4 MG PO AD for 6 Days, #1 PACK Day 1: Take 2 tablets before breakfast,1 tablet after lunch and supper, and 2 tablets at bedtime. Day 2: Take1 tablet before breakfast,1 tablet after lunch,1 tablet after supper, and 2 tablets at bedtime. Day 3: Take 1 tablet before breakfast, 1 tablet after lunch, 1 tablet after supper, and 1 tablet at bedtime. Day 4: Take 1 tablet before breakfast, 1 tablet after lunch, and 1 tablet at bedtime. Day 5: Take1 tablet before breakfast and 1 tablet at bedtime. Day 6: Take 1 tablet before breakfast. Prov: ANEL GREEN BELT LINE FEEDER 07/31/24 Additional Instructions: Please follow up with your primary doctor in 1-2 days. Please return to ER if symptoms worsen. FOLLOW-UP WITH PRIMARY CARE PROVIDER IN 1 TO 2 DAYS. TAKE MEDICATIONS DIRECTED HERE IN THE EMERGENCY ROOM. OKAY TO CONTINUE HOME MEDICATIONS UNLESS OTHERWISE DISCUSSED DURING YOUR VISIT IN THE EMERGENCY ROOM TODAY. RETURN TO YOUR NEAREST EMERGENCY ROOM IF SYMPTOMS WORSEN OR IF THERE IS NO IMPROVEMENT. CALL 911 IF YOU NEED IMMEDIATE ASSISTANCE. TAKE TYLENOL OR MOTRIN [id number] NEEDED AND IF NO CONTRAINDICATIONS ARE PRESENT. INCREASE ORAL HYDRATION. A WOUND CULTURE OR URINE CULTURE WAS ORDERED HERE IN THE [facility] ROOM DEPARTMENT PLEASE FOLLOW-UP WITH PRIMARY CARE PROVIDER AND ADVISE THEM TO GET REPEAT PORTS FROM OUR FACILITY. IF YOU HAD ANY BRADY WRAP/SPLINTS THAT WERE APPLIED HERE, PLEASE DO NOT REMOVE THEM UNTIL YOU SEE YOUR PRIMARY CARE OR SPECIALTY. Referrals: SELF,REFERRAL (PCP) Time of Disposition: 22:44 I have reviewed the case, and I agree with, Diagnosis and Plan ANEL GREEN Jul 31, 2024 22:45
[2024-07-31] MEDS: IpraTROPium/alBUTERol SULFATE 3 ML SOLUTION IH ONE (23:03)
[2024-07-31 23:04] VITALS: PULSE 103; RESP 20
[2024-07-31 23:16] VITALS: BP 133/56; PULSE 78; RESP 20; TEMP 97.8; O2SAT 98
== END 2024-07-31 23:20 | disposition home or self-care (01) ==
LOC: EDH 21:09
DX: J20.8 Acute bronchitis due to other specified organisms (principal); B97.89 Other viral agents as the cause of diseases classified elsewhere; J06.9 Acute upper respiratory infection, unspecified; E03.9 Hypothyroidism, unspecified; E78.00 Pure hypercholesterolemia, unspecified; J45.909 Unspecified asthma, uncomplicated; Z20.822 Contact with and (suspected) exposure to COVID-19; Z79.51 Long term (current) use of inhaled steroids; Z79.52 Long term (current) use of systemic steroids; Z79.82 Long term (current) use of aspirin; Z79.899 Other long term (current) drug therapy; Z88.5 Allergy status to narcotic agent; Z95.5 Presence of coronary angioplasty implant and graft
CPT/HCPCS: 99284; 71045; 87426; 87880; 87804 ×2; 96372; 94640; J1100

== ENCOUNTER 2024-08-01 20:59 | Emergency (ER) | payer SELFPAY ==
[~2024-08-01] VITALS: Ht 165.1 cm; Wt 61.2 kg
--- NOTE | 2024-08-01 21:37 | EKG ---
[facility] Test Date: 2024-08-01 Test Time: 21:36:14 Pat Name: PARAG SANCHES Department: ED Room: Gender: M Electrical Continuity Tester: 1378 : 1980 Requested By: ANEL GREEN Order Number: [id number] Reading MD: Stefan Hwang Measurements Intervals [place] Rate: 66 P: 78 VT: 104 QRS: -36 QRSD: 94 T: 15 QT: 415 QTc: 436 Interpretive Statements Sinus rhythm Left ventricular hypertrophy Possible anteroseptal and lateral DE, old Electronically Signed On 08-04-2024 14:14:45 CDT by Stefan Hwang Please click the below link to view image of tracing.
[2024-08-01] MEDS: 0.9%NACL 1000ML 1,000 ML IV ONE (21:48)
[2024-08-01] MEDS: acetaMINOPHEN 500 MG TABLET PO ONE (21:48)
[2024-08-01] MEDS: Solu-medROL 125MG VIAL IVP ONE (21:48)
[2024-08-01 21:50] LABS: BASOPHILS # (AUTO) 0.03 K/uL (0.00-0.20); BASOPHILS % (AUTO) 0.2 % (0.0-5.0); EOSINOPHILS # (AUTO) 0.04 K/uL (0.00-0.70); EOSINOPHILS % (AUTO) 0.2 % (0.0-8.0); HEMATOCRIT 43.7 % (42-54); IMMATURE GRANULOCYTE ABSOLUTE 0.08 K/uL (0-1); LYMPHOCYTES # (AUTO) 2.5 K/uL (1.0-4.8); LYMPHOCYTES % (AUTO) 14.7 % (21.0-51.0); MEAN CORPUSCULAR HEMOGLOBIN 29.6 pg (27.0-33.0); MEAN CORPUSCULAR HGB CONC 33.4 g/dL (32.0-36.0); MEAN CORPUSCULAR VOLUME 88.5 fL (79-99); MONOCYTES # (AUTO) 1.2 K/uL (0.1-1.0); MONOCYTES % (AUTO) 6.9 % (3.0-13.0); NEUTROPHILS % (AUTO) 77.5 % (40.0-77.0); PLATELET COUNT (AUTO) 259 K/uL (130-400); RED BLOOD CELL COUNT(AUTO) 4.94 MIL/uL (4.50-6.20); RED CELL DISTRIBUTION WIDTH 12.9 % (11.0-15.5); WHITE BLOOD COUNT (AUTO) 16.8 K/uL (4.8-10.8)
--- NOTE | 2024-08-01 22:01 | HMCIMG ---
CHEST 1VW CLINICAL HISTORY: cp COMPARISON: 07/31/2024 TECHNIQUE: Single view of the chest was obtained. FINDINGS: Lungs are clear. The cardiac size and mediastinum are unremarkable. The bony structures are within normal limits. IMPRESSION: No acute cardiopulmonary process identified.
[2024-08-01 22:03] LABS: CREATININE 1.2 mg/dL (0.5-1.3); POTASSIUM 3.6 mmol/L (3.5-5.1)
[2024-08-01 22:21] VITALS: PULSE 90; RESP 18
[2024-08-01] MEDS: IpraTROPium/alBUTERol SULFATE 3 ML SOLUTION IH ONE (22:21)
--- NOTE | 2024-08-01 23:04 | NUR ---
RECEIVED REPORT FROM BASILIA GUTIÉRREZ
--- NOTE | 2024-08-02 00:15 | ERN ---
ED Note History of Present Illness Stated Complaint: WEAKNESS Chief Complaint: Cough Time Seen by MD: 21:03 Time Seen by Midlevel: 21:03 Dictation: The patient is a 43-year-old male with a history of hyperlipidemia who presents to the emergency department with complaints of sore throat, weakness, productive cough, headaches onset four days ago. Patient reports fevers. Patient was seen here yesterday and was diagnosed with bronchitis. Allergies: Coded Allergies: codeine (Unverified Allergy, Intermediate, HIVES, 11/03/16) shellfish derived (Unverified Allergy, Mild, 06/07/14) No Allergy Information Available (Verified Allergy, Unknown, 06/07/14) Home Meds Active Scripts Albuterol Sulfate (Ventolin Hfa/Proventil Hfa/Proair Hfa) 90 Mcg Puff, 1-2 PUFF IH Q4H PRN for SHORTNESS OF BREATH for 5 Days, #1 INH 0 Refills PHARMACY TO DISPENSE 1 INHALER FOR USE Prov:ANEL GREEN 07/31/24 Methylprednisolone (Medrol) 4 Mg Tab.ds.pk, 4 MG PO AD for 6 Days, #1 PACK Day 1: Take 2 tablets before breakfast,1 tablet after lunch and supper, and 2 tablets at bedtime. Day 2: Take1 tablet before breakfast,1 tablet after lunch,1 tablet after supper, and 2 tablets at bedtime. Day 3: Take 1 tablet before breakfast, 1 tablet after lunch, 1 tablet after supper, and 1 tablet at bedtime. Day 4: Take 1 tablet before breakfast, 1 tablet after lunch, and 1 tablet at bedtime. Day 5: Take1 tablet before breakfast and 1 tablet at bedtime. Day 6: Take 1 tablet before breakfast. Prov:ANEL GREEN 07/31/24 Bismuth Subsalicylate (Pepto-Bismol To-Go) 262 Mg Tab.chew, 1 TAB PO QID for diarrhea for 3 Days, #15 TAB 0 Refills Prov:TAMERA ASENCIO MD 06/27/24 Acidophilus/Bulgaricus (Floranex Tablet) 1 Million Cell Tablet, 1 TAB PO TID for 30 Days, #30 TAB 0 Refills Prov:TAMERA ASENCIO MD 06/27/24 Ondansetron (Ondansetron Odt) 4 Mg Tab.rapdis, 1 TAB PO Q6HPRN PRN for na usea/vomiting for 4 Days, #16 TAB 0 Refills Prov:TAMERA ASENCIO MD 06/27/24 Albuterol Sulfate (Ventolin Hfa/Proventil Hfa/Proair Hfa) 90 Mcg Puff, 2 PUFF IH Q4H PRN for SHORTNESS OF BREATH/WHEEZING for 30 Days, #1 INH 0 Refills Prov:RONALD BURNETT 06/09/24 Methylprednisolone (Medrol) 4 Mg Tab.ds.pk, 1 TAB PO AD for 6 Days, #21 TAB 0 Refills 6 on day 1 then reduce by one tablet daily until gone Prov:RONALD BURNETT 06/09/24 Azithromycin (Azithromycin) 250 Mg Tablet, 1 TAB PO AD for 5 Days, #6 TAB 0 Refills 2 the first day followed by 1 for days 2-5 Prov:RONALD BURNETT 06/09/24 Albuterol Sulfate (Proventil Hfa) 90 Mcg Hfa.aer.ad, 6.7 GM IH Q4HPRN PRN for WHEEZING, #1 INHALER 1 Refill as needed for asthma or wheezing exacerbation Prov:BART BURCIAGA 05/30/23 Ibuprofen (Ibuprofen) 600 Mg Tablet, 600 MG PO TID PRN for PAIN for 3 Days, #12 TAB Prov:BART BURCIAGA 05/30/23 Pantoprazole Sodium (Protonix) 40 Mg Tablet.dr, 40 MG PO DAILY for 14 Days, #14 TAB Prov:BART BURCIAGA 05/30/23 Methylprednisolone (Medrol) 4 Mg Tab.ds.pk, 4 MG PO DAILY, #1 PACK as directed per dose pack instructions Prov:BART BURCIAGA 05/30/23 Benzonatate (Tessalon Perles) 100 Mg Cap, 100 MG PO TID for cough, #15 CAP 0 Refills Prov:BART BURCIAGA 05/30/23 Azelastine/Fluticasone (Dymista Nasal Porum) 137 Mcg-50 Mcg/Porum Porum.pump, 23 GM NS BID for 30 Days, #1 BOTTLE Prov:BART BURCIAGA 05/30/23 Fluticasone/Salmeterol (ADVAIR 250-50 DISKUS) 14 Inh/Disk Inh, 1 INH IH BID for 30 Days, #1 INHALER Prov:BART BURCIAGA 05/30/23 Albuterol Sulfate (Albuterol Sulfate) 2 Mg/5 Ml Syrup, 2 MG PO TID for 5 Days, #75 ML Prov:LARA MARIE HOTEL NIGHT AUDITOR 08/22/22 Prednisone (Prednisone) 20 Mg Tablet, 2 TAB PO AD for 5 Days, #10 0 Refills TAKE 1 TAB BY MOUTH THREE TIMES PER DAY X3 DAYS, THEN TAKE 1 TAB BY MOUTH TWICE A DAY X2 DAYS, THEN TAKE 1 TAB BY MOUTH ONCE A DAY X1 DAY. Prov:LARA MARIE NP 08/22/22 Doxycycline Hyclate (Doxycycline Hyclate) 100 Mg Tablet.dr, 100 MG PO BID for 7 Days, #14 TAB Prov:LARA MARIE NP 08/22/22 Albuterol Sulfate (Ventolin Hfa) 18 Gm Hfa.aer.ad, 18 GM IH BID for 7 Days, #30 INHALER Prov:ODALYS DUVALL MD 05/13/22 Amoxicillin (Amoxicillin) 500 Mg Capsule, 500 MG PO TID for 7 Days, #21 CAP Prov:ODALYS DUVALL MD 05/13/22 Ondansetron (Ondansetron Odt) 4 Mg Tab.rapdis, 4 MG PO TID, #15 TAB Prov:FREEMAN MIGUEL 09/18/21 L.acidoph & Paracasei,B.lactis (Probiotic) 1 Each Capsule, 1 EACH PO DAILY, #30 CAP Prov:FREEMAN MIGUEL 09/18/21 Budesonide (Pulmicort Flexhaler) 180 Mcg Aer.pow.ba, 180 MCG IH BID, #1 UNIT Prov:MICKY DALTON MD 11/04/16 Azithromycin (Azithromycin) 250 Mg Tablet, 250 MG PO DAILY, #5 TAB Prov:MICKY DALTON MD 11/04/16 Reported Medications Albuterol Sulfate (Albuterol Sulfate) 0.63 Mg/3 Ml Vial.neb, 0.63 MG IH Q4HPRN PRN for SHORTNESS OF BREATH, INH 11/03/16 Aspirin (ASPIRIN 81MG CHEW TAB) 81 Mg Tab.chew, 81 MG PO DAILY, TAB.CHEW 11/03/16 Prednisone (Prednisone) 20 Mg Tablet, 20 MG PO TID, TAB 11/03/16 Atorvastatin Calcium (Lipitor) 20 Mg Tablet, 20 MG PO HS, TAB !!Remember to check dose!! 06/08/14 Past Medical History Past Medical History: Asthma, Bronchitis, High Cholesterol, Heart Disease, Hypothyroid Additional Past Medical Hx: HEP C, GASTRITIS Surgical History: Other Surgical History Other: HEART STENT RN Note Reviewed/Agreed w/PFSH: Yes Review of System Dictation Constitutional: Negative for fever,chills, and weight loss Eyes: Negative for injury, pain,redness, and discharge ENT: Negative for injury,pain or swelling Cardiovascular: Negative for chest pain, palpitations, and edema Respiratory: Negative for shortness of breath, , and wheezing, positive for cough Abdomen/GI: Negative for abdominal pain, nausea, vomiting, diarrhea, and constipation Back: Negative for injury and pain : Negative for injury, bleeding and discharge MS/Extremity: Negative for injury and deformity Skin: Negative for rash, and discoloration Neuro: Negative for , numbness, tingling, and seizure positive for weakness, headache Psych: Negative for suicide ideation, homicidal ideation, and hallucinations Initial Vital Sign VS Vital Signs Date Time Temp Pulse Resp B/P (MAP) Pulse Ox O2 Delivery O2 Flow Rate FiO2 08/01/24 21:01 98.2 76 18 121/75 98 Room Air 08/01/24 21:18 0 21 Physical Exam Dictation Vital Signs reviewed General Appearance: Alert, oriented x 3, no acute distress, well developed, nourished. Head and Face: non-traumatic. Eyes: PERRL, pink conjunctivas, eyelid no trauma, anterior chamber with arcus senilis. Ears: Pinnas intact and no signs of trauma or erythema ear canals clear and no discharge TM no erythema Nose: No discharge, no bleeding. Oropharynx: Mouth normal, tongue pink. pharynx clear,no erythema, tonsils no exudates, no abscesses noted, mucous membrane moist Neck: Supple, non-tender, no thyromegaly, no masses, no JVD, no bruits Breast:Deferred Chest:No tenderness, no crepitus, no paradoxical movement, no retractions Lungs:Clear, well-ventilated, symmetric, no rales, no wheezing, no rhonchi, no stridor, good breath sounds bilaterally Heart: Regular rate, regular rhythm, no murmur, no gallops Vascular: no peripheral edema, Abdomen: Soft, positive bowel sounds, nondistended, no guarding, nontender, no rebound, no masses no hepatomegaly, no splenomegaly, no Zheng's sign, no hernias. Rectal: Deferred Genital: Deferred Neurological: Normal speech, motor function intact, sensory function intact , upper extremities equal in strength, lower extremities equal in strength Musculoskeletal: Neck nontender, full range of motion, back nontender, full range of motion, Extremities: nontender, full range of motion Skin: Color pink, dry, no turgor, no rash, no lacerations, no abrasions, no contusions. Lymphatic: Deferred Results (Laboratory/Radiology) Laboratory/Radiology Laboratory Tests Test 08/01/24 21:43 08/01/24 23:54 White Blood Count 16.8 K/uL (4.8-10.8) H Red Blood Count 4.94 MIL/uL (4.50-6.20) Hemoglobin 14.6 g/dL (14.0-18.0) Hematocrit 43.7 % (42-54) Mean Corpuscular Volume 88.5 fL (79-99) Mean Corpuscular Hemoglobin 29.6 pg (27.0-33.0) Mean Corpuscular Hemoglobin Concent 33.4 g/dL (32.0-36.0) Red Cell Distribution Width 12.9 % (11.0-15.5) Platelet Count 259 K/uL (130-400) Mean Platelet Volume 10.5 fL (7.5-10.5) Immature Granulocyte % (Auto) 0.5 % (0-1) Neutrophils (%) (Auto) 77.5 % (40.0-77.0) H Lymphocytes (%) (Auto) 14.7 % (21.0-51.0) L Monocytes (%) (Auto) 6.9 % (3.0-13.0) Eosinophils (%) (Auto) 0.2 % (0.0-8.0) Basophils (%) (Auto) 0.2 % (0.0-5.0) Neutrophils # (Auto) 13.0 K/uL (1.8-7.7) H Lymphocytes # (Auto) 2.5 K/uL (1.0-4.8) Monocytes # (Auto) 1.2 K/uL (0.1-1.0) H Eosinophils # (Auto) 0.04 K/uL (0.00-0.70) Basophils # (Auto) 0.03 K/uL (0.00-0.20) Absolute Immature Granulocyte (auto 0.08 K/uL (0-1) Nucleated Red Blood Cells 0.0 % (0.0-0.19) Sodium Level 132 mmol/L (136-145) L Potassium Level 3.6 mmol/L (3.5-5.1) Chloride Level 98 mmol/L (101-111) L Carbon Dioxide Level 28 mmol/L (21-32) Blood Urea Nitrogen 28 mg/dL (7-18) H Creatinine 1.2 mg/dL (0.5-1.3) Glomerular Filtration Rate Calc 78 mL/min (>90) Random Glucose 114 mg/dL (70-105) H Total Calcium 8.8 mg/dL (8.5-10.1) Total Creatine Kinase 297 U/L (21-232) #H Troponin I High Sensitivity < 4 ng/L (4-75) L Urine Color COLORLESS (YELLOW) Urine Appearance CLEAR (CLEAR) Urine pH 5.5 (5.0-8.0) Urine Specific [place] 1.004 (1.001-1.031) Urine Protein NEGATIVE mg/dL (NEGATIVE) Urine Glucose (UA) NEGATIVE mg/dL (NEGATIVE) Urine Ketones 5 mg/dL (NEGATIVE) H Urine Occult Blood NEGATIVE (NEGATIVE) Urine Nitrate NEGATIVE (NEGATIVE) Urine Bilirubin NEGATIVE mg/dL (NEGATIVE) Urine Urobilinogen 0.2 mg/dL (0.2-1.0) Urine Leukocyte Esterase NEGATIVE Juan/uL Urine Opiates Screen NEGATIVE (NEGATIVE) Urine Barbiturates Screen NEGATIVE (NEGATIVE) Urine Phencyclidine Screen NEGATIVE (NEGATIVE) Urine Amphetamines Screen NEGATIVE (NEGATIVE) Urine Benzodiazepines Screen NEGATIVE (NEGATIVE) Urine Cocaine Screen NEGATIVE (NEGATIVE) Urine Marijuana (THC) Screen NEGATIVE (NEGATIVE) Labs Reviewed?: Yes EKG: (+) rhythm (Sinus rhythm) EKG Comment: Date:08/01/2024 Time:2135 Ventricular rate:66 [place] interval:104 QRS duration:94 QT/QTc:415 EKG interpretation: Sinus rhythm Reviewed by ED Attending no STEMI ED Course ED Course Orders Procedure Category Date Status Time Cbc With Differential LAB 08/01/24 Complete 21:27 Chest 1vw RAD 08/01/24 Resulted 21:27 12 Lead Ekg Tracing- EKG 08/01/24 Complete Technical 21:27 0.9%Nacl 1000ml (Ns PHA 08/01/24 Complete 1000ml) 21:30 Creatine Kinase, Total LAB 08/01/24 Complete 21:27 Troponin I High LAB 08/01/24 Complete Sensitivity 21:27 Basic Metabolic Panel LAB 08/01/24 Complete 21:27 Acetaminophen 500mg PHA 08/01/24 Complete Tab (Tylenol 500mg T 21:30 Methylprednisolone PHA 08/01/24 Complete Succ 125mg (Solu-Medr 21:30 Ipratropium/Albuterol PHA 08/01/24 Complete Neb (Duoneb) 21:30 Drug Screen Urine LAB 08/01/24 Complete 22:07 Urinalysis Profile LAB 08/01/24 Complete 22:07 Current Medications Medications (Trade) Dose Ordered Sig/Randall Route PRN Reason Start Time Stop Time Status Last Admin Dose Admin Acetaminophen (TYLenol 500MG TAB) 1,000 mg ONCE ONCE PO 08/01/24 21:30 08/01/24 21:31 DC 08/01/24 21:48 Albuterol (DUOneb) 1 UDVIAL ONCE ONCE IH 08/01/24 21:30 08/01/24 21:31 DC 08/01/24 22:21 Methylprednisolone Sodium Succinate (Solu-medROL 125MG) 125 mg ONCE ONCE IVP 08/01/24 21:30 08/01/24 21:31 DC 08/01/24 21:48 Sodium Chloride 1,000 ml @ 0 mls/hr ONCE ONCE IV 08/01/24 21:30 08/01/24 21:31 DC 08/01/24 21:48 Vital Signs Date Time Temp Pulse Resp B/P (MAP) Pulse Ox O2 Delivery O2 Flow Rate FiO2 08/01/24 23:57 98.1 82 16 124/76 98 Room Air* 0 21 08/01/24 22:21 90 18 08/01/24 21:18 98.2 76 18 121/75 98 Room Air* 0 21 08/01/24 21:01 98.2 76 18 121/75 98 Room Air Medical Decision Making MDM The patient is a 43-year-old male with a history of hyperlipidemia who presents to the emergency department with complaints of sore throat, weakness, productive cough, headaches onset four days ago. Patient reports fevers. Patient was seen here yesterday and was diagnosed with bronchitis. CBC showed leukocytosis. Patient has been receiving steroids, no fevers. No anemia, chemistry showed mild hyponatremia, hypochloremia, slightly elevated CK level, negative troponin. Urinalysis unremarkable. Chest x-ray showed no acute pathology. Patient given fluids and respiratory treatments in ER. Patient in no acute distress. Nonlabored respiration Will be discharged to follow up with PCP. Differential diagnosis: Pneumonia, ACS, dehydration, upper respiratory infection Need for hospitalization: Patient does not meet criteria for hospitalization. There are no social concerns with this patient. DX & DISP Disposition: Discharge Departure Impression: Primary Impression: Mild dehydration Additional Impressions: Weakness, Acute viral bronchitis Condition: Stable Additional Instructions: Is follow up with the primary doctor in 1-2 days. If symptoms worsen please return to ER. FOLLOW-UP WITH PRIMARY CARE PROVIDER IN 1 TO 2 DAYS. TAKE MEDICATIONS DIRECTED HERE IN THE EMERGENCY ROOM. OKAY TO CONTINUE HOME MEDICATIONS UNLESS OTHERWISE DISCUSSED DURING YOUR VISIT IN THE EMERGENCY ROOM TODAY. RETURN TO YOUR NEAREST EMERGENCY ROOM IF SYMPTOMS WORSEN OR IF THERE IS NO IMPROVEMENT. CALL 911 IF YOU NEED IMMEDIATE ASSISTANCE. TAKE TYLENOL OR MOTRIN [id number] NEEDED AND IF NO CONTRAINDICATIONS ARE PRESENT. INCREASE ORAL HYDRATION. A WOUND CULTURE OR URINE CULTURE WAS ORDERED HERE IN THE EMERGENCY ROOM DEPARTMENT PLEASE FOLLOW-UP WITH PRIMARY CARE PROVIDER AND ADVISE THEM TO GET REPEAT PORTS FROM OUR FACILITY. IF YOU HAD ANY BRADY WRAP/SPLINTS THAT WERE APPLIED HERE, PLEASE DO NOT REMOVE THEM UNTIL YOU SEE YOUR PRIMARY CARE OR SPECIALTY. Referrals: SELF,REFERRAL (PCP) Time of Disposition: 00:50 I have reviewed the case, and I agree with, Diagnosis and Plan ANEL GREEN Aug 02, 2024 00:15
[2024-08-02 00:37] LABS: APPEARANCE,URINE CLEAR (CLEAR); BILIRUBIN,URINE NEGATIVE (NEGATIVE); COLOR,URINE COLORLESS (YELLOW); GLUCOSE, URINE (UA) NEGATIVE (NEGATIVE); KETONES,URINE 5 mg/dL (NEGATIVE); LEUKOCYTE ESTERASE ,URINE NEGATIVE Leu/uL (NEGATIVE); NITRATE,URINE NEGATIVE (NEGATIVE); OCCULT BLOOD,URINE NEGATIVE (NEGATIVE); PH,URINE 5.5 (5.0-8.0); PROTEIN,URINE NEGATIVE (NEGATIVE); UROBILINOGEN,URINE 0.2 mg/dL (0.2-1.0)
[2024-08-02 00:41] LABS: ADD UA MICROSCOPIC NO
[2024-08-02 00:58] LABS: AMPHET/METH SCREEN,URINE NEGATIVE (NEGATIVE); BARBITURATE SCREEN, URINE NEGATIVE (NEGATIVE); BENZODIAZEPINES SCREEN,URINE NEGATIVE (NEGATIVE); CANNABINOID SCREEN,URINE NEGATIVE (NEGATIVE); COCAINE SCREEN,URINE NEGATIVE (NEGATIVE); OPIATE SCREEN,URINE NEGATIVE (NEGATIVE); PHENCYCLIDINE SCREEN,URINE NEGATIVE (NEGATIVE)
[2024-08-02 01:10] VITALS: BP 119/72; PULSE 86; RESP 16; TEMP 98.5; O2SAT 98
== END 2024-08-02 01:10 | disposition home or self-care (01) ==
LOC: EDH 20:59
DX: E86.0 Dehydration (principal); R53.1 Weakness; J20.8 Acute bronchitis due to other specified organisms; B97.89 Other viral agents as the cause of diseases classified elsewhere; E03.9 Hypothyroidism, unspecified; E78.00 Pure hypercholesterolemia, unspecified; J45.909 Unspecified asthma, uncomplicated; Z79.51 Long term (current) use of inhaled steroids; Z79.52 Long term (current) use of systemic steroids; Z79.82 Long term (current) use of aspirin; Z79.899 Other long term (current) drug therapy; Z86.19 Personal history of other infectious and parasitic diseases; Z88.5 Allergy status to narcotic agent; Z95.5 Presence of coronary angioplasty implant and graft
CPT/HCPCS: 99285; 96374; 71045; 82550; 84484; 80048; 80305; 85025; 36415; 93005; 94640; 81003; J2919; J7030